=== PATIENT | female | born 1985 | race Caucasian/White ===

== ENCOUNTER → 2018-09-29 | Outpatient (REF) | LOC: M LAB LCGH 13:59 | PROVIDERS: ATTEND Obstetrics & Gynecology | DX: Z12.4 Encounter for screening for malignant neoplasm of cervix (principal) ==

== ENCOUNTER → 2021-06-14 | Outpatient (CLI) | payer OTHER, MEDICAID | LOC: M LABSMTC 12:19 | PROVIDERS: ATTEND Anesthesiology | DX: Z01.812 Encounter for preprocedural laboratory examination (principal); Z20.822 Contact with and (suspected) exposure to COVID-19 ==

== ENCOUNTER 2021-06-19 11:13 | Day surgery (SDC) | payer MEDICAID, OTHER ==
[~2021-06-19] VITALS: Ht 160 cm; Wt 123.6 kg
[~2021-06-19 11:13] MED LIST: ACETAMINOPHEN 1000MG 100ML IV BTL (OFIRMEV) (J0131 PER 10MG) As Ordered ONE; AMPICILLIN SOD/SULBACTAM SOD 3 GM in D5W MINI-BAG PLUS 100 ML IV ONE; CelecoXIB 400 MG CAP PO ONE; KETOROLAC 60MG 2ML VIAL As Ordered ONE; LIDOCAINE 2% 100MG/5ML SDV (FOR ANES.) As Ordered ONE; LR 1,000 ML IV ONE; MIDAZOLAM INJ 2MG/2ML VIAL (J2250 PER 1MG) As Ordered ONE; ONDANSETRON 4MG/2ML VIAL As Ordered ONE; ROCURONIUM BROMIDE 50 MG/5 ML VIAL As Ordered ONE; SUGAMMADEX SODIUM 500 MG/5 ML VIAL (BRIDION) As Ordered ONE; dexameTHASONE 4 MG/ML 1ML VIAL (J1100 PER 1MG) As Ordered ONE; fentaNYL 100 MCG/2 ML INJECTION (J3010) As Ordered ONE; propofoL 200 MG/20 ML VIAL As Ordered ONE
[2021-06-19] MEDS ORDERED: BUPIVACAINE HCL 0.25% 30ML VIAL As Ordered ONE (13:37)
[2021-06-19] MEDS ORDERED: LIDOCAINE 1% SDV 30ML VIAL As Ordered ONE (13:37)
[2021-06-19] MEDS ORDERED: GLYCOPYRROLATE INJ 0.2 MG/ML 2 ML VIAL As Ordered ONE (14:23)
[2021-06-19] MEDS ORDERED: ROCURONIUM BROMIDE 50 MG/5 ML VIAL As Ordered ONE (14:34)
[2021-06-19] MEDS ORDERED: ePHEDrine SULFATE 25 MG/5 ML(5MG/ML) SYRINGE As Ordered ONE (14:34)
[2021-06-19] MEDS ORDERED: fentaNYL 100 MCG/2 ML INJECTION (J3010) As Ordered ONE (15:34)
[2021-06-19] MEDS: fentaNYL 100 MCG/2 ML INJECTION (J3010) IV PRN ×4 (15:37→15:55)
[2021-06-19] MEDS ORDERED: METOCLOPRAMIDE INJ 10MG/2ML VIAL (J2765 PER 1) IV PRN (15:40)
[2021-06-19] MEDS ORDERED: LR 1,000 ML IV SCH (15:40)
[2021-06-19] MEDS ORDERED: KETOROLAC 30 MG/ML 1ML VIAL IV PRN (15:40)
[2021-06-19] MEDS ORDERED: ONDANSETRON 4MG/2ML VIAL IV PRN ×2 (15:40)
[2021-06-19] MEDS ORDERED: PERCOCET 5MG/325MG TAB PO PRN (15:40)
[2021-06-19] MEDS ORDERED: NORCO, ANEXSIA 5/325MG TABLET (HYDROcodone/ACETAMINOPHEN) PO PRN ×2 (15:40)
== END 2021-06-19 17:32 | disposition home or self-care (01) ==
LOC: M SDC 11:13
PROVIDERS: ATTEND Surgery
DX: K82.9 Disease of gallbladder, unspecified (principal); F41.9 Anxiety disorder, unspecified; F32.9 Major depressive disorder, single episode, unspecified; E66.9 Obesity, unspecified; Z98.84 Bariatric surgery status
CPT/HCPCS: 47563; 81025; 88304; J0131; J1100; J1885; J2250; J2405; J2765; J3010; S2900

== ENCOUNTER → 2022-02-20 | Outpatient (CLI) | payer OTHER ==
[2022-02-20 10:41] LABS: HEMATOCRIT 30.7 % (36.0-47.0); HEMOGLOBIN 10.1 g/dl (12.0-15.5); MEAN CORPUSCULAR HEMOGLOBIN 29.7 pg (27.0-33.0); MEAN CORPUSCULAR HGB CONC 32.9 g/dl (32.0-36.5); MEAN CORPUSCULAR VOLUME 90.3 fl (80.0-96.0); PLATELET COUNT, AUTOMATED 284 10^3/uL (150-450); WHITE BLOOD COUNT 7.7 10^3/uL (4.0-10.0)
[2022-02-20 11:53] LABS: HEMOGLOBIN A1c 5.7 %
[2022-02-20 12:41] LABS: GC DNA AMPLIFICATION NEGATIVE (NEGATIVE)
[2022-02-20 13:05] LABS: HEPATITIS C VIRUS ABY INDEX < 0.0 INDEX (<0.8); HIV 1&2 SCREEN CENTAUR NEGATIVE (NEGATIVE); TOTAL 25(OH) VITAMIN D 27.2 NG/ML (30.0-100.0); VITAMIN B12 LEVEL 334 PG/ML (247-911)
[2022-02-20 13:15] LABS: IRON (FE) 48 UG/DL (50-170)
== END ==
LOC: M PLALAB 08:51
PROVIDERS: ATTEND Advanced Practice Midwife
DX: Z34.02 Encounter for supervision of normal first pregnancy, second trimester (principal); Z3A.00 Weeks of gestation of pregnancy not specified

== ENCOUNTER 2022-02-26 16:22 | Outpatient (CLI) | payer OTHER ==
[~2022-02-26] VITALS: Ht 160 cm; Wt 124.4 kg
[2022-02-26 16:48] VITALS: BP 113/71
[2022-02-26] MEDS ORDERED: IRON27TA2 PO (16:51)
[2022-02-26] MEDS ORDERED: MULTTAB20 PO (16:51)
[2022-02-26] MEDS ORDERED: ZYRTTAB8 PO (16:51)
[2022-02-26] MEDS ORDERED: ASPI81CH33 PO (16:51)
[2022-02-26] MEDS ORDERED: HOME MED LIST COMPLETE! XX SCH (16:55)
== END 2022-02-26 18:37 | disposition home or self-care (01) ==
LOC: M LDO 16:22
PROVIDERS: ATTEND Obstetrics & Gynecology
DX: O09.513 Supervision of elderly primigravida, third trimester (principal); W19.XXXA Unspecified fall, initial encounter; Y92.9 Unspecified place or not applicable; Y93.9 Activity, unspecified; Y99.9 Unspecified external cause status; Z3A.28 28 weeks gestation of pregnancy
CPT/HCPCS: 59025; 76815; 76819; 76820; G0463

== ENCOUNTER → 2022-04-03 | Outpatient (CLI) | payer OTHER ==
[~2022-04-03] MED LIST changes: -ACETAMINOPHEN 1000MG 100ML IV BTL (OFIRMEV) (J0131 PER 10MG) As Ordered ONE; -AMPICILLIN SOD/SULBACTAM SOD 3 GM in D5W MINI-BAG PLUS 100 ML IV ONE; +ASPI81CH33 PO; -CelecoXIB 400 MG CAP PO ONE; +IRON27TA2 PO; -KETOROLAC 60MG 2ML VIAL As Ordered ONE; -LIDOCAINE 2% 100MG/5ML SDV (FOR ANES.) As Ordered ONE; -LR 1,000 ML IV ONE; -MIDAZOLAM INJ 2MG/2ML VIAL (J2250 PER 1MG) As Ordered ONE; +MULTTAB20 PO; -ONDANSETRON 4MG/2ML VIAL As Ordered ONE; -ROCURONIUM BROMIDE 50 MG/5 ML VIAL As Ordered ONE; -SUGAMMADEX SODIUM 500 MG/5 ML VIAL (BRIDION) As Ordered ONE; +ZYRTTAB8 PO; -dexameTHASONE 4 MG/ML 1ML VIAL (J1100 PER 1MG) As Ordered ONE; -fentaNYL 100 MCG/2 ML INJECTION (J3010) As Ordered ONE; -propofoL 200 MG/20 ML VIAL As Ordered ONE
== END ==
LOC: M WHC 14:30
PROVIDERS: ATTEND Specialist
DX: Z34.03 Encounter for supervision of normal first pregnancy, third trimester (principal); Z3A.33 33 weeks gestation of pregnancy

== ENCOUNTER → 2022-04-20 | Outpatient (REF) | payer OTHER | LOC: M SFHCWAGY 15:06 | PROVIDERS: ATTEND Specialist | DX: Z34.03 Encounter for supervision of normal first pregnancy, third trimester (principal) ==

== ENCOUNTER 2022-05-17 15:30 | Inpatient (IN) | payer OTHER ==
[~2022-05-17] VITALS: Ht 160 cm; Wt 127.5 kg
[2022-05-17] MEDS ORDERED: GNP250TA9 PO (16:04)
[2022-05-17] MEDS ORDERED: primrose PO (16:04)
[2022-05-17] MEDS ORDERED: VITAD400CA PO (16:04)
[2022-05-17] MEDS ORDERED: ACET-897 PO (16:05)
[2022-05-17] MEDS ORDERED: HOME MED LIST COMPLETE! XX SCH (16:10)
[2022-05-17 16:29] VITALS: BP 129/83
[2022-05-17 16:42] LABS: HEMATOCRIT 34.6 % (36.0-47.0); HEMOGLOBIN 11.8 g/dl (12.0-15.5); MEAN CORPUSCULAR HEMOGLOBIN 31.1 pg (27.0-33.0); MEAN CORPUSCULAR HGB CONC 34.1 g/dl (32.0-36.5); MEAN CORPUSCULAR VOLUME 91.3 fl (80.0-96.0); PLATELET COUNT, AUTOMATED 187 10^3/uL (150-450); RED BLOOD COUNT 3.79 10^6/uL (4.00-5.40)
[2022-05-17] MEDS ORDERED: TRANEXAMIC ACID INJection 1,000 MG in NS 100 ML IV PRN (17:10)
[2022-05-17] MEDS ORDERED: OXYTOCIN DRIP 30 UNITS in IV 1 EA IV PRN (17:10)
[2022-05-17] MEDS ORDERED: METHYLERGONOVINE MALEATE 0.2 MG/ML VIAL (J2210) IM PRN (17:10)
[2022-05-17] MEDS ORDERED: LIDOCAINE 1% MDV 20ML VIAL INFIL PRN (17:10)
[2022-05-17] MEDS ORDERED: PENICILLIN G POTASSIUM 5 MU IV 5 MU in D5W MINI-BAG PLUS 100 ML IV STA (17:25)
[2022-05-17 17:57] VITALS: BP 135/81
[2022-05-17] MEDS: miSOPROStol 50MCG 1/2 TABLET PO SCH ×2 (17:57→22:18)
[2022-05-17 18:44] VITALS: BP 132/73
[2022-05-17] MEDS ORDERED: PEN G POT 3,000,000 UNIT/50 ML 3,000,000 UNIT in IV 1 EA IV SCH (21:25)
[2022-05-18] VITALS (23 sets, daily range): BP systolic 99–151; BP diastolic 51–90
[2022-05-18] MEDS: miSOPROStol 50MCG 1/2 TABLET PO SCH ×2 (03:06→10:13)
[2022-05-18] MEDS: LR 1,000 ML IV SCH ×2 (16:53→21:57)
[2022-05-18] MEDS: OXYTOCIN DRIP 30 UNITS in IV 1 EA IV SCH (16:53)
[2022-05-18] MEDS ORDERED: PENICILLIN G POTASSIUM 5 MU IV 5 MU in D5W MINI-BAG PLUS 100 ML IV STA (17:01)
[2022-05-18] MEDS ORDERED: FENTANYL/ROPIVACAINE/NACL BAG 100 ML EPIDURAL SCH (20:20)
[2022-05-18] MEDS ORDERED: EPIDURAL/PCA KEYS XX PRN (20:20)
[2022-05-18] MEDS ORDERED: LR 500 ML IV PRN (20:20)
[2022-05-18] MEDS ORDERED: diphenhydrAMINE 50MG/ML VIAL IV PRN (20:20)
[2022-05-18] MEDS ORDERED: ePHEDrine SULFATE 25 MG/5 ML(5MG/ML) SYRINGE IVP PRN (20:20)
[2022-05-18] MEDS ORDERED: ONDANSETRON 4MG 2ML VIAL IV PRN (20:20)
[2022-05-18] MEDS ORDERED: NALOXONE INJ 0.4MG/1ML VIAL IV PRN (20:20)
[2022-05-18] MEDS ORDERED: PEN G POT 3,000,000 UNIT/50 ML 3,000,000 UNIT in IV 1 EA IV SCH (21:00)
[2022-05-18] MEDS ORDERED: AZITHROMYCIN INJ 500 MG, VIAL MATE ADAPTER 1 EACH in NS 250 ML IV ONE (22:30)
[2022-05-18] MEDS ORDERED: KETOROLAC 60MG 2ML VIAL As Ordered ONE (22:30)
[2022-05-18] MEDS ORDERED: LIDOCAINE 2% W/EPINEPHRINE 20ML VIAL **PRES FREE As Ordered ONE (22:30)
[2022-05-18] MEDS ORDERED: BICITRA 30ML SOLN UDC PO ONE (22:30)
[2022-05-18] MEDS ORDERED: OXYTOCIN INJ 10UNITS/ML 1ML VIAL As Ordered ONE (22:30)
[2022-05-18] MEDS ORDERED: ceFAZolin SOD 3 GM IV Place Holder IV ONE (22:30)
[2022-05-18] MEDS ORDERED: ceFAZolin SOD 2 GM in IV 1 EA IV ONE (22:35)
[2022-05-18] MEDS ORDERED: ceFAZolin SOD 1 GM in D5W MINI-BAG PLUS 50 ML IV ONE ×3 (22:35→23:30)
[2022-05-18] MEDS ORDERED: ceFAZolin 1GM VIAL As Ordered ONE (22:51)
[2022-05-18] MEDS ORDERED: ePHEDrine SULFATE 25 MG/5 ML(5MG/ML) SYRINGE As Ordered ONE (23:22)
[2022-05-18] MEDS ORDERED: PHENYLephrine 500MCG 5ML (100MCG/ML) SYRINGE As Ordered ONE (23:22)
[2022-05-18] MEDS ORDERED: ONDANSETRON 4MG 2ML VIAL As Ordered ONE (23:49)
[2022-05-18] MEDS ORDERED: MORPHINE PRES-FREE INJ 10 MG/10 ML VIAL As Ordered ONE (23:49)
[2022-05-18 23:58] LABS: CORD GAS ABE V -4.8; CORD GAS HCO3 V 20.7 MEQ/L; CORD GAS O2 SAT V 65.6 %; CORD GAS PCO2 V 40.2 mmHg; CORD GAS PH V 7.33 UNITS; CORD GAS PO2 V 26.5 mmHg; CORD GAS SBC V 19.7 MEQ/L
[2022-05-19] VITALS (14 sets, daily range): BP systolic 99–131; BP diastolic 53–83
[2022-05-19] LABS: CORD GAS ABE A -8.6; CORD GAS HCO3 A 18.3 MEQ/L; CORD GAS O2 SAT A 48.8 %; CORD GAS PCO2 A 42.3 mmHg; CORD GAS PH A 7.253 UNITS; CORD GAS PO2 A 21.8 mmHg; CORD GAS SBC A 16.6 MEQ/L; CORD GAS TCO2 A 19.6 MEQ/L
[2022-05-19] MEDS ORDERED: PERCOCET 5MG/325MG TAB PO PRN ×2 (00:45)
[2022-05-19] MEDS ORDERED: ONDANSETRON 4MG 2ML VIAL IV PRN ×2 (00:45→00:50)
[2022-05-19] MEDS ORDERED: RHOGAM 300 MCG (1500 IU) INJ (J2790) IM SCH (00:45)
[2022-05-19] MEDS ORDERED: SIMETHICONE 80MG CHEW TAB PO PRN (00:45)
[2022-05-19] MEDS: LR 1,000 ML IV SCH ×4 (00:45→13:05)
[2022-05-19] MEDS ORDERED: OXYTOCIN DRIP 30 UNITS in IV 1 EA IV SCH (00:45)
[2022-05-19] MEDS ORDERED: NALOXONE INJ 0.4MG/1ML VIAL IV PRN ×2 (00:50)
[2022-05-19] MEDS ORDERED: fentaNYL 100 MCG/2 ML INJECTION IV PRN (00:50)
[2022-05-19] MEDS ORDERED: **NOTE PATIENT COMMENT** MISC XX SCH (00:50)
[2022-05-19] MEDS ORDERED: diphenhydrAMINE 50MG/ML VIAL IV PRN (00:50)
[2022-05-19] MEDS ORDERED: METOCLOPRAMIDE INJ 10MG/2ML VIAL IV PRN (00:50)
[2022-05-19] MEDS: SLF 3 ML SYR IV SCH ×3 (01:00→17:00)
[2022-05-19] MEDS ORDERED: IBUP80TA PO (01:03)
[2022-05-19] MEDS ORDERED: COLA100C5 PO (01:03)
[2022-05-19] MEDS ORDERED: PERCOCET PO (01:03)
[2022-05-19 01:07] LABS: HEMATOCRIT 28.9 % (36.0-47.0); MEAN CORPUSCULAR HEMOGLOBIN 31.2 pg (27.0-33.0); MEAN CORPUSCULAR HGB CONC 33.9 g/dl (32.0-36.5); PLATELET COUNT, AUTOMATED 149 10^3/uL (150-450); RED BLOOD COUNT 3.14 10^6/uL (4.00-5.40); WHITE BLOOD COUNT 10.3 10^3/uL (4.0-10.0)
[2022-05-19] MEDS: OXYTOCIN DRIP 30 UNITS in IV 1 EA IV SCH (01:10)
[2022-05-19 01:32] LABS: HEMOGLOBIN 9.8 g/dl (12.0-15.5)
[2022-05-19 01:46] LABS: CREATININE FOR GFR 0.49 MG/DL (0.55-1.30); GLOMERULAR FILTRATION RATE > 60.0 (>60)
[2022-05-19] MEDS: KETOROLAC 30 MG/ML 1ML VIAL IV SCH ×3 (06:11→19:10)
[2022-05-19] MEDS ORDERED: UNRESOLVED CLARIFICATION ENTRY XX SCH (07:00)
[2022-05-19] MEDS: PRENATAL VITAMINS CHEWABLE TABLET PO SCH (08:24)
[2022-05-19] MEDS: DOCUSATE SODIUM 100MG CAPSULE PO SCH ×2 (08:24→20:39)
[2022-05-19] MEDS: ENOXAPARIN 30MG/0.3ML SYRINGE (J1650 PER 10MG) SC SCH ×2 (08:24→20:39)
[2022-05-19] MEDS ORDERED: oxyCODONE 5MG TAB PO PRN ×2 (22:35)
[2022-05-20] MEDS: LR 1,000 ML IV SCH ×3 (00:45→16:45)
[2022-05-20 02:00] VITALS: BP 112/56
[2022-05-20] MEDS ORDERED: IBUPROFEN 800 MG TAB PO SCH (02:00)
[2022-05-20] MEDS: ACETAMINOPHEN 500 MG TAB PO PRN ×4 (02:10→20:55)
[2022-05-20] MEDS ORDERED: ONDANSETRON 4MG 2ML VIAL IV PRN (02:50)
[2022-05-20 06:00] VITALS: BP 117/60
[2022-05-20 07:01] LABS: HEMATOCRIT 28.5 % (36.0-47.0); HEMOGLOBIN 9.4 g/dl (12.0-15.5); MEAN CORPUSCULAR HEMOGLOBIN 30.9 pg (27.0-33.0); MEAN CORPUSCULAR VOLUME 93.8 fl (80.0-96.0); PLATELET COUNT, AUTOMATED 142 10^3/uL (150-450); RED BLOOD COUNT 3.04 10^6/uL (4.00-5.40)
[2022-05-20] MEDS: DOCUSATE SODIUM 100MG CAPSULE PO SCH ×2 (07:36→20:44)
[2022-05-20] MEDS: PRENATAL VITAMINS CHEWABLE TABLET PO SCH (07:36)
[2022-05-20] MEDS: ENOXAPARIN 30MG/0.3ML SYRINGE (J1650 PER 10MG) SC SCH ×2 (07:37→20:44)
[2022-05-20 10:00] VITALS: BP 103/55
[2022-05-20 14:00] VITALS: BP 115/59
[2022-05-20 18:00] VITALS: BP 115/73
[2022-05-20 22:00] VITALS: BP 137/75
[2022-05-21] MEDS: LR 1,000 ML IV SCH ×2 (00:45→08:45)
[2022-05-21] MEDS: ACETAMINOPHEN 500 MG TAB PO PRN (04:07)
[2022-05-21 06:00] VITALS: BP 112/61
[2022-05-21] MEDS ORDERED: MEASLES,MUMPS,RUBELLA VACCINE INJ (MMR-II) (90707) SC.IMMUN ONE (09:00)
[2022-05-21] MEDS: ENOXAPARIN 30MG/0.3ML SYRINGE (J1650 PER 10MG) SC SCH (09:29)
[2022-05-21] MEDS: PRENATAL VITAMINS CHEWABLE TABLET PO SCH (09:29)
[2022-05-21] MEDS: DOCUSATE SODIUM 100MG CAPSULE PO SCH (09:29)
== END 2022-05-21 12:35 | disposition home or self-care (01) | DRG 540 ==
LOC: M LDI 15:30 → M OBS 05-19 01:50
PROVIDERS: ADMIT Obstetrics & Gynecology; ATTEND Obstetrics & Gynecology
PROC: 3E0P7GC Introduction of Other Therapeutic Substance into Female Reproductive, Via Natural or Artificial Opening (ICD-10-PCS; 2022-05-17)
PROC: 10D00Z1 Extraction of Products of Conception, Low, Open Approach (ICD-10-PCS; principal; 2022-05-18)
DX: O99.844 Bariatric surgery status complicating childbirth (principal); E66.9 Obesity, unspecified; D25.9 Leiomyoma of uterus, unspecified; O99.214 Obesity complicating childbirth; Z3A.40 40 weeks gestation of pregnancy; O09.523 Supervision of elderly multigravida, third trimester; O48.0 Post-term pregnancy; E73.9 Lactose intolerance, unspecified; Z79.82 Long term (current) use of aspirin; Z79.899 Other long term (current) drug therapy; O77.0 Labor and delivery complicated by meconium in amniotic fluid; O76 Abnormality in fetal heart rate and rhythm complicating labor and delivery; O34.13 Maternal care for benign tumor of corpus uteri, third trimester; Z37.0 Single live birth; O99.284 Endocrine, nutritional and metabolic diseases complicating childbirth

== ENCOUNTER → 2022-10-08 | Outpatient (REF) | payer OTHER ==
[~2022-10-08] MED LIST changes: +ACET-897 PO; +COLA100C5 PO; +GNP250TA9 PO; +IBUP80TA PO; +PERCOCET PO; +VITAD400CA PO; +primrose PO
== END ==
LOC: M SFHCWAGY 13:04
PROVIDERS: ATTEND Obstetrics & Gynecology
DX: Z12.4 Encounter for screening for malignant neoplasm of cervix (principal)
CPT/HCPCS: 87624; G0123

== ENCOUNTER → 2023-07-21 | Outpatient (CLI) | payer OTHER ==
[2023-07-21 12:59] LABS: HEMATOCRIT 34.5 % (36.0-47.0); HEMOGLOBIN 11.3 g/dl (12.0-15.5); MEAN CORPUSCULAR HEMOGLOBIN 28.2 pg (27.0-33.0); MEAN CORPUSCULAR HGB CONC 32.8 g/dl (32.0-36.5); PLATELET COUNT, AUTOMATED 297 10^3/uL (150-450); RED BLOOD COUNT 4.01 10^6/uL (4.00-5.40); WHITE BLOOD COUNT 6.3 10^3/uL (4.0-10.0)
[2023-07-21 13:58] LABS: ALBUMIN 3.8 G/DL (3.2-5.2); ALKALINE PHOSPHATASE 73 U/L (46-116); ALT/SGPT 11 U/L (7.0-40); AST/SGOT 9 U/L (<34); BILIRUBIN,TOTAL 0.4 MG/DL (0.3-1.2); BLOOD UREA NITROGEN 9 MG/DL (9-23); CALCIUM LEVEL 8.7 MG/DL (8.5-10.1); CARBON DIOXIDE LEVEL 25 MMOL/L (20-31); CHLORIDE LEVEL 105 MMOL/L (98-107); CREATININE FOR GFR 0.47 MG/DL (0.55-1.30); GLOMERULAR FILTRATION RATE > 60.0 (>60); GLUCOSE, FASTING 83 MG/DL (60-100); POTASSIUM SERUM 3.9 MMOL/L (3.5-5.1); SODIUM LEVEL 136 MMOL/L (136-145); TOTAL PROTEIN 7.6 G/DL (5.7-8.2)
[2023-07-21 13:59] LABS: VITAMIN B12 LEVEL 404 PG/ML (211-911)
[2023-07-21 14:11] LABS: CREATININE,RANDOM URINE 41.8 MG/DL
[2023-07-21 14:12] LABS: TOTAL PROTEIN,RANDOM URINE < 6.0 MG/DL (0.0-14.0)
[2023-07-21 14:29] LABS: HIV 1&2 SCREEN NEGATIVE (NEGATIVE)
[2023-07-21 14:37] LABS: HEPATITIS C VIRUS ABY INDEX 0.03 INDEX (<0.8)
[2023-07-21 14:52] LABS: CHLAMYDIA DNA AMPLIFICATION NEGATIVE (NEGATIVE); GC DNA AMPLIFICATION NEGATIVE (NEGATIVE)
== END ==
LOC: M PLALAB 11:12
PROVIDERS: ATTEND Advanced Practice Midwife
DX: O99.841 Bariatric surgery status complicating pregnancy, first trimester (principal); Z3A.00 Weeks of gestation of pregnancy not specified

== ENCOUNTER → 2023-09-02 | Outpatient (CLI) | payer OTHER | LOC: M PLALAB 15:53 | PROVIDERS: ATTEND Specialist | DX: Z34.81 Encounter for supervision of other normal pregnancy, first trimester (principal) ==

== ENCOUNTER → 2023-10-27 | Outpatient (CLI) | payer OTHER | LOC: M RAD 14:46 | PROVIDERS: ATTEND Advanced Practice Midwife | DX: O34.12 Maternal care for benign tumor of corpus uteri, second trimester (principal); Z3A.20 20 weeks gestation of pregnancy; D25.9 Leiomyoma of uterus, unspecified ==

== ENCOUNTER → 2024-01-19 | Outpatient (CLI) | payer OTHER, MEDICAID ==
[2024-01-19 16:07] LABS: HEMATOCRIT 27.5 % (36.0-47.0); HEMOGLOBIN 8.9 g/dl (12.0-15.5); MEAN CORPUSCULAR HEMOGLOBIN 28.4 pg (27.0-33.0); MEAN CORPUSCULAR HGB CONC 32.4 g/dl (32.0-36.5); MEAN CORPUSCULAR VOLUME 87.9 fl (80.0-96.0); PLATELET COUNT, AUTOMATED 254 10^3/uL (150-450); RED BLOOD COUNT 3.13 10^6/uL (4.00-5.40); WHITE BLOOD COUNT 8.7 10^3/uL (4.0-10.0)
[2024-01-19 16:36] LABS: TOTAL 25(OH) VITAMIN D 27.4 NG/ML (20.0-100.0)
[2024-01-19 16:37] LABS: FOLATE 11.13 NG/ML (>5.4); VITAMIN B12 LEVEL 215 PG/ML (211-911)
[2024-01-19 16:39] LABS: IRON (FE) 37 UG/DL (50-170)
[2024-01-19 17:33] LABS: GC DNA AMPLIFICATION NEGATIVE (NEGATIVE)
== END ==
LOC: M PLALAB 12:52
PROVIDERS: ATTEND Advanced Practice Midwife
DX: O99.842 Bariatric surgery status complicating pregnancy, second trimester (principal); Z3A.00 Weeks of gestation of pregnancy not specified

== ENCOUNTER 2024-02-03 10:15 | Outpatient (CLI) | payer MEDICAID ==
[~2024-02-03] VITALS: Ht 157.5 cm; Wt 127.7 kg
[~2024-02-03 10:15] MED LIST changes: +ALBUTEROL SULFATE 2.5MG/0.5ML INH NEB SOLN INH PRN; +EPINEPHrine INJ 1 MG/ML 1ML AMP IM PRN; +diphenhydrAMINE 50MG/ML VIAL IV PRN; +methylPREDNISolone 125MG 2ML VIAL IV PRN
[2024-02-03 10:20] VITALS: BP 127/65; O2SAT 100
[2024-02-03] MEDS ORDERED: NS 1,000 ML IV SCH (10:30)
[2024-02-03] MEDS: ACETAMINOPHEN TAB 650MG DOSE (2X325MG) PO ONE (10:59)
[2024-02-03] MEDS: diphenhydrAMINE 25MG CAP PO ONE (11:00)
[2024-02-03] MEDS: IRON SUCROSE 500 MG in NS 250 ML OVER 4 HRS IV ONE (11:00)
[2024-02-03 12:15] VITALS: BP 129/70; O2SAT 100
[2024-02-03 14:15] VITALS: BP 116/61; O2SAT 95
[2024-02-03 15:45] VITALS: BP 118/73; O2SAT 99
[2024-02-17] MEDS ORDERED: CETI10CH PO (11:15)
== END 2024-02-03 15:45 ==
LOC: M INFU 10:15
PROVIDERS: ATTEND Advanced Practice Midwife
DX: D64.9 Anemia, unspecified (principal)
CPT/HCPCS: 96365; 96366; J1756

== ENCOUNTER → 2024-02-18 | Outpatient (REF) | payer MEDICAID ==
[~2024-02-18] MED LIST changes: -ALBUTEROL SULFATE 2.5MG/0.5ML INH NEB SOLN INH PRN; +CETI10CH PO; -EPINEPHrine INJ 1 MG/ML 1ML AMP IM PRN; -diphenhydrAMINE 50MG/ML VIAL IV PRN; -methylPREDNISolone 125MG 2ML VIAL IV PRN
== END ==
LOC: M PLALAB 10:45
PROVIDERS: ATTEND Obstetrics & Gynecology
DX: Z36.85 Encounter for antenatal screening for Streptococcus B (principal); Z3A.37 37 weeks gestation of pregnancy

== ENCOUNTER 2024-02-25 07:30 | Inpatient (IN) | payer MEDICAID, OTHER ==
[~2024-02-25] VITALS: Ht 160 cm; Wt 128.7 kg
[2024-03-03] VITALS (7 sets, daily range): BP systolic 106–120; BP diastolic 54–70; TEMP 97.8; O2SAT 97–100
[2024-03-03] MEDS ORDERED: ceFAZolin SOD 3 GM IV Place Holder IV ONE (05:50)
[2024-03-03] MEDS: LACTATED RINGER'S 1000 ML IV STA (06:40)
[2024-03-03 06:51] LABS: HEMATOCRIT 30.1 % (36.0-47.0); HEMOGLOBIN 9.9 g/dl (12.0-15.5); MEAN CORPUSCULAR HEMOGLOBIN 29.2 pg (27.0-33.0); MEAN CORPUSCULAR HGB CONC 32.9 g/dl (32.0-36.5); MEAN CORPUSCULAR VOLUME 88.8 fl (80.0-96.0); PLATELET COUNT, AUTOMATED 230 10^3/uL (150-450); RED BLOOD COUNT 3.39 10^6/uL (4.00-5.40); WHITE BLOOD COUNT 8.4 10^3/uL (4.0-10.0)
[2024-03-03] MEDS: LR 1,000 ML IV SCH ×2 (07:13→09:50)
[2024-03-03] MEDS ORDERED: MORPHINE PRES-FREE INJ 10 MG/10 ML VIAL As Ordered ONE (07:14)
[2024-03-03] MEDS ORDERED: PHENYLephrine 500MCG 5ML (100MCG/ML) SYRINGE As Ordered ONE (07:14)
[2024-03-03] MEDS ORDERED: HOME MED LIST COMPLETE! XX SCH (07:15)
[2024-03-03] MEDS ORDERED: ePHEDrine SULFATE 25 MG/5 ML(5MG/ML) SYRINGE As Ordered ONE (07:15)
[2024-03-03] MEDS ORDERED: OXYTOCIN 30UNITS IN 0.9% NaCl 500ML IV BAG As Ordered ONE (07:15)
[2024-03-03] MEDS: ceFAZolin SOD 1 GM in D5W MINI-BAG PLUS 50 ML IV ONE (07:16)
[2024-03-03] MEDS: ceFAZolin SOD 2 GM in IV 1 EA IV ONE (07:17)
[2024-03-03] MEDS: BICITRA 30ML SOLN UDC PO ONE (07:17)
[2024-03-03 07:54] LABS: HEPATITIS C VIRUS ABY INDEX 0.02 INDEX (<0.8)
[2024-03-03] MEDS ORDERED: KETOROLAC 60MG 2ML VIAL As Ordered ONE (08:23)
[2024-03-03] MEDS ORDERED: ONDANSETRON 4MG 2ML VIAL As Ordered ONE (08:23)
[2024-03-03] MEDS: PRENATAL VITAMINS CHEWABLE TABLET PO SCH (09:00)
[2024-03-03] MEDS ORDERED: MORPHINE 4 MG/ML 1ML VIAL IV PRN (09:30)
[2024-03-03] MEDS ORDERED: SIMETHICONE 80MG CHEW TAB PO PRN (09:30)
[2024-03-03] MEDS ORDERED: CALCIUM CARBONATE 500 MG CHEW U/D PO PRN (09:30)
[2024-03-03] MEDS ORDERED: RHO(D) IMMUNE GLOBULIN/MALTOSE 500MCG(2500IU)/2.2ML VIAL (WINRHO) IM SCH (09:30)
[2024-03-03] MEDS ORDERED: METHYLERGONOVINE MALEATE 0.2MG/ML 1ML VIAL IM PRN (09:30)
[2024-03-03] MEDS ORDERED: NALOXONE INJ 0.4MG/1ML VIAL IV PRN ×2 (09:45)
[2024-03-03] MEDS ORDERED: **NOTE PATIENT COMMENT** MISC XX SCH (09:45)
[2024-03-03] MEDS ORDERED: fentaNYL 100 MCG/2 ML INJECTION IV PRN (09:45)
[2024-03-03] MEDS ORDERED: ONDANSETRON 4MG 2ML VIAL IV PRN (09:45)
[2024-03-03] MEDS ORDERED: METOCLOPRAMIDE INJ 10MG/2ML VIAL IV PRN (09:45)
[2024-03-03] MEDS ORDERED: HYDROMORPHONE HCL 0.5 MG/ 0.5 ML SYRINGE IV PRN (09:45)
[2024-03-03] MEDS ORDERED: MEPERIDINE 25 MG/ML 1ML VIAL IV PRN (09:45)
[2024-03-03] MEDS ORDERED: oxyCODONE 5MG TAB PO PRN (09:45)
[2024-03-03] MEDS: SLF 3 ML SYR IV SCH (09:45)
[2024-03-03] MEDS: OXYTOCIN DRIP 30 UNITS in IV 1 EA IV SCH (09:50)
[2024-03-03 10:50] LABS: HEMATOCRIT 27.8 % (36.0-47.0); HEMOGLOBIN 8.8 g/dl (12.0-15.5); MEAN CORPUSCULAR HEMOGLOBIN 28.9 pg (27.0-33.0); MEAN CORPUSCULAR HGB CONC 31.7 g/dl (32.0-36.5); MEAN CORPUSCULAR VOLUME 91.1 fl (80.0-96.0); PLATELET COUNT, AUTOMATED 183 10^3/uL (150-450); RED BLOOD COUNT 3.05 10^6/uL (4.00-5.40); WHITE BLOOD COUNT 8.5 10^3/uL (4.0-10.0)
[2024-03-03 11:13] LABS: CREATININE FOR GFR 0.49 MG/DL (0.55-1.30); GLOMERULAR FILTRATION RATE > 60.0 (>60)
[2024-03-03] MEDS: diphenhydrAMINE 50MG/ML VIAL IV PRN (14:02)
[2024-03-03] MEDS: ENOXAPARIN 60MG/0.6ML SYRINGE (J1650 PER 10MG) SC SCH (15:36)
[2024-03-03] MEDS: KETOROLAC 30 MG/ML 1ML VIAL IV SCH (15:36)
[2024-03-03] MEDS: DOCUSATE SODIUM 100MG CAPSULE PO SCH (21:01)
[2024-03-04 06:00] VITALS: BP 90/55; O2SAT 98
[2024-03-04 07:23] LABS: HEMATOCRIT 22.9 % (36.0-47.0); HEMOGLOBIN 7.3 g/dl (12.0-15.5); MEAN CORPUSCULAR HEMOGLOBIN 29.2 pg (27.0-33.0); MEAN CORPUSCULAR HGB CONC 31.9 g/dl (32.0-36.5); MEAN CORPUSCULAR VOLUME 91.6 fl (80.0-96.0); PLATELET COUNT, AUTOMATED 149 10^3/uL (150-450); WHITE BLOOD COUNT 6.7 10^3/uL (4.0-10.0)
[2024-03-04 08:17] VITALS: BP 97/53
[2024-03-04] MEDS: FERROUS SULFATE 325MG TAB PO SCH (09:12)
[2024-03-04] MEDS: ACETAMINOPHEN 500 MG TAB PO PRN (09:13)
[2024-03-04 10:00] VITALS: BP 100/60
[2024-03-04] MEDS: IBUPROFEN 800 MG TAB PO SCH (10:00)
[2024-03-04 13:17] VITALS: BP 108/64
[2024-03-04] MEDS: PERCOCET 5MG/325MG TAB PO PRN ×2 (17:19→21:17)
[2024-03-04 18:00] VITALS: BP 115/58; O2SAT 95
[2024-03-04 22:19] VITALS: BP 112/54; O2SAT 99
[2024-03-05 02:04] VITALS: BP 110/56; O2SAT 97
[2024-03-05 06:21] VITALS: BP 116/57; O2SAT 99
[2024-03-05] MEDS: MEASLES,MUMPS,RUBELLA VACCINE INJ (MMR-II) SC.IMMUN ONE (09:00)
[2024-03-05 10:00] VITALS: BP 113/58; O2SAT 98
== END 2024-03-05 15:55 | disposition home or self-care (01) | DRG 540 ==
LOC: M LDI 03-03 05:35 → M OBS 03-03 11:00
PROVIDERS: ADMIT Obstetrics & Gynecology; ATTEND Obstetrics & Gynecology
PROC: 0UB70ZZ Excision of Bilateral Fallopian Tubes, Open Approach (ICD-10-PCS; 2024-03-03)
PROC: 10D00Z1 Extraction of Products of Conception, Low, Open Approach (ICD-10-PCS; principal; 2024-03-03 07:30)
DX: O34.11 Maternal care for benign tumor of corpus uteri, first trimester (principal); Z30.2 Encounter for sterilization; Z3A.39 39 weeks gestation of pregnancy; Z37.0 Single live birth; Z79.899 Other long term (current) drug therapy